=== PATIENT | female | born 1965 | race Caucasian/White ===

== ENCOUNTER → 2018-12-04 13:47 | Outpatient (CLI) | payer OTHER, SELFPAY ==
--- NOTE | 2018-12-04 13:50 | CT_ITS ---
CT abdomen pelvis wo con CLINICAL INDICATION: ITS.REASON: HEMATURIA, history of colon, lung, and uterine cancer by patient report ORDERING PHYSICIAN: Pedro Mclain PATIENT AGE: 53 years COMPARISON: None TECHNIQUE: Axial images obtained with sagittal and coronal reformats. All CT scans at the facility use one or more dose reduction, viz: automated exposure control, ma/kV adjustment per patient size (including targeted exams where dose is matched to indication, i.e. head), or iterative reconstruction technique. PROCEDURE: Oral Contrast: None IV Contrast: None . FINDINGS: Lower thorax: No acute finding . There is increased density along the lower aspect of the right breast. Does the patient have breast implants? Mammography may be of further value if there is no history of breast implant. 4 mm isodensity is present in the left hepatic lobe laterally and is nonspecific. The spleen, right adrenal gland, pancreas, gallbladder, and kidneys have an unremarkable unenhanced CT appearance. No renal or ureteral calculi There are few small retroperitoneal lymph nodes. Left adrenal gland is somewhat prominent but without focal nodule or mass and maintains an adreniform shape. No evidence of appendicitis or diverticulitis. There is at least one diverticulum in the mid aspect of the sigmoid colon. No pelvic mass abnormal fluid collection or focal inflammatory change of the pelvis. Unremarkable appearance of the bladder. No acute bony findings. IMPRESSION: 1. No acute abdominal or pelvic findings. No renal or ureteral calculi 2. Increased density along the lower aspect of the right breast. This is incompletely imaged and may be due to a lower margin of the breast implant. Please correlate with patient's history. If there has not been a prior breast implant, then mammography and ultrasound would be recommended for final evaluation
== END ==
LOC: RAD 13:48
PROVIDERS: PCP Internal Medicine; Referring Provider Internal Medicine; Visit Provider Internal Medicine
DX: R31.9 Hematuria, unspecified (principal)
CPT/HCPCS: 74176